=== PATIENT | female | born 1985 | race Two or more races ===

== ENCOUNTER 2020-07-20 03:19 | Emergency (ER) | payer OTHER ==
[~2020-07-20] VITALS: Ht 165.1 cm; Wt 81.6 kg
[2020-07-20 03:22] VITALS: BP 113/72
[2020-07-20] MEDS ORDERED: LIDOCAINE HCL/PF 1% 30 ML SDV ONE (04:07)
--- NOTE | 2020-07-20 04:15 | NUR ---
dr. [email or web address] at bedside for i&d.
== END 2020-07-20 05:40 | disposition home or self-care (01) ==
LOC: ER 03:21
DX: O99.711 Diseases of the skin and subcutaneous tissue complicating pregnancy, first trimester (principal); L02.31 Cutaneous abscess of buttock; Z3A.01 Less than 8 weeks gestation of pregnancy
CPT/HCPCS: 10060; 99283; J3490